=== PATIENT | male | born 1980 | race Caucasian/White ===

== ENCOUNTER 2024-02-10 00:42 | Inpatient (IN) | payer OTHER ==
[~2024-02-10] VITALS: Ht 170.2 cm; Wt 113.4 kg
[2024-02-10 03:16] LABS: BASOPHILS % 0.3 % (0.0-2.0); EOSINOPHILS % 0.6 % (0.0-5.0); HEMATOCRIT. 54.8 % (42.0-52.0); HEMOGLOBIN. 17.7 g/dL (14.0-18.0); LYMPHOCYTES % 11.7 % (20.0-50.0); MEAN CORPUSCULAR HEMOGLOBIN 29.7 pg (28.0-32.0); MEAN CORPUSCULAR HGB CONC 32.3 g/dL (31.0-37.0); MEAN CORPUSCULAR VOLUME 91.8 fL (80.0-94.0); MONOCYTES % 8.9 % (2.0-8.0); NEUTROPHILS % 78.5 % (40.0-76.0); RED BLOOD CELL COUNT 5.97 mill/uL (4.7-6.1); RED CELL DISTRIBUTION WIDTH 13.3 % (11.6-14.6); WHITE BLOOD COUNT 17.1 x1000/uL (4.5-11.0)
[2024-02-10 03:21] LABS: DIFFERENTIAL COMMENT 1
[2024-02-10 03:39] LABS: CHLORIDE 102 mEq/L (98-107); POTASSIUM 3.2 mEq/L (3.5-5.1); SODIUM 138 mEq/L (136-145)
[2024-02-10 03:40] LABS: CALCIUM 9.6 mg/dL (8.7-10.4); CARBON DIOXIDE 27 mEq/L (21-32)
[2024-02-10 03:45] LABS: GLUCOSE 151 mg/dL (70-105); UREA NITROGEN BLOOD 8 mg/dL (9-23)
[2024-02-10] MEDS ORDERED: LACTATED RINGERS IV ONE (03:45)
[2024-02-10 04:16] LABS: CLARITY URINE CLEAR (CLEAR); COLOR URINE DARK YELLOW (YELLOW); GLUCOSE URINE NEGATIVE (NEGATIVE); KETONES URINE 2+ (NEGATIVE); LEUKOCYTE ESTERASE URINE NEGATIVE (NEGATIVE); NITRITE URINE NEGATIVE (NEGATIVE); OCCULT BLOOD URINE NEGATIVE (NEGATIVE); PH URINE 5.5 (4.5-8.0); PROTEIN URINE 1+ (NEGATIVE); SPECIFIC GRAVITY URINE 1.032 (1.005-1.030)
[2024-02-10 04:30] LABS: LACTATE DEHYDROGENASE 144 IU/L (120-246)
[2024-02-10] MEDS: SODIUM CHLORIDE 0.9% (SEPSIS BOLUS) IV ONE (04:34)
[2024-02-10] MEDS: AMPICILLIN SOD/SULBACTAM NA 3 G in SODIUM CHLORIDE 0.9% 100 ML IV SCH ×2 (04:34→16:00)
[2024-02-10 06:25] LABS: PLATELET 230 x1000/uL (130-400)
[2024-02-10] MEDS ORDERED: IOHEXOL-300 100 ML BOTTLE ONE (07:12)
[2024-02-10 07:35] LABS: MUCUS URINE 3+ /lpf (NONE/TRACE); SQUAMOUS EPITHELIAL CELL URINE RARE /lpf (RARE/1+)
[2024-02-10 07:36] LABS: RBC URINE 0-2 /hpf (0-2); WBC URINE 0-2 /hpf (0-2)
[2024-02-10 07:38] LABS: BACTERIA URINE NONE SEEN
[2024-02-10] MEDS: HYDRALAZINE 20MG/ML VIAL IV NR (07:55)
[2024-02-10] MEDS ORDERED: ONDANSETRON HCL 4MG/2ML INJ IV PRN (08:45)
[2024-02-10] MEDS ORDERED: ACETAMINOPHEN 325MG TABLET PO PRN (08:45)
[2024-02-10] MEDS ORDERED: KETOROLAC 30MG/ML VIAL IV PRN (08:45)
[2024-02-10] MEDS: POTASSIUM CHLORIDE 20MEQ TABLET SR PO NR (11:07)
[2024-02-10 12:00] VITALS: BP 141/74; PULSE 87; RESP 18; TEMP 36.61404; O2SAT 97
[2024-02-10] MEDS: AMLODIPINE 10MG TABLET PO SCH (15:59)
[2024-02-10 16:00] VITALS: BP 141/74; PULSE 87; RESP 18; TEMP 36.61404; O2SAT 97
[2024-02-10 16:29] VITALS: BP 162/88; PULSE 99; RESP 18; TEMP 37.9748
[2024-02-10 20:00] VITALS: BP 162/88; PULSE 99; RESP 18; TEMP 37.2252; O2SAT 95
[2024-02-11] VITALS: BP 108/60; PULSE 74; RESP 18; TEMP 36.78072; O2SAT 95
[2024-02-11 08:00] VITALS: BP 136/82; PULSE 72; RESP 19; TEMP 36.16956; O2SAT 100
[2024-02-11 08:35] LABS: BASOPHILS % 0.5 % (0.0-2.0); EOSINOPHILS % 2.2 % (0.0-5.0); HEMATOCRIT. 47.8 % (42.0-52.0); HEMOGLOBIN. 15.9 g/dL (14.0-18.0); LYMPHOCYTES % 21.1 % (20.0-50.0); MEAN CORPUSCULAR HEMOGLOBIN 30.5 pg (28.0-32.0); MEAN CORPUSCULAR HGB CONC 33.3 g/dL (31.0-37.0); MEAN CORPUSCULAR VOLUME 91.7 fL (80.0-94.0); MEAN PLATELET VOLUME 9.2 fl (7.4-10.4); MONOCYTES % 11.6 % (2.0-8.0); NEUTROPHILS % 64.6 % (40.0-76.0); PLATELET 198 x1000/uL (130-400); RED BLOOD CELL COUNT 5.21 mill/uL (4.7-6.1); RED CELL DISTRIBUTION WIDTH 13.1 % (11.6-14.6); WHITE BLOOD COUNT 8.3 x1000/uL (4.5-11.0)
[2024-02-11 12:09] VITALS: BP 127/72; PULSE 79; RESP 20; TEMP 36.22512; O2SAT 100
[2024-02-11 16:00] VITALS: BP 131/74; PULSE 78; RESP 20; TEMP 36.3918; O2SAT 100
[2024-02-11 20:00] VITALS: BP 147/98; PULSE 82; RESP 20; TEMP 36.72516; O2SAT 98
[2024-02-12] VITALS: BP 118/66; PULSE 69; RESP 20; TEMP 36.61404; O2SAT 100
[2024-02-12 04:00] VITALS: BP 127/96; PULSE 78; RESP 20; TEMP 36.50292; O2SAT 96
[2024-02-12] MEDS ORDERED: AMOX1TAB16 MT (09:45)
[2024-02-12] MEDS ORDERED: AMLO5TAB88 MT (09:45)
[2024-02-12 09:52] VITALS: BP 135/70; PULSE 84; TEMP 98.1; O2SAT 96
== END 2024-02-12 10:45 | disposition home or self-care (01) | DRG 872 ==
LOC: ER 00:42 → 6EST 04:24 → EDBEDREQTM 04:38 → EDBEDREQ 04:38
PROVIDERS: ADMIT Internal Medicine; ATTEND Internal Medicine
DX: A41.9 Sepsis, unspecified organism (principal); L03.314 Cellulitis of groin; E66.01 Morbid (severe) obesity due to excess calories; E87.6 Hypokalemia; I10 Essential (primary) hypertension; Z68.39 Body mass index [BMI] 39.0-39.9, adult
CPT/HCPCS: 36415; 74177; 76857; 80048; 81003; 83605; 83615; 85025; 99285; J0295; J0360; J7030; J7050; J7120; Q9967

== ENCOUNTER 2024-11-05 00:42 | Emergency (ER) | payer OTHER ==
[~2024-11-05] VITALS: Ht 170.2 cm; Wt 111.0 kg
[~2024-11-05 00:42] MED LIST: AMLO5TAB88 MT; AMOX1TAB16 MT
[2024-11-05 01:00] VITALS: O2SAT 99
[2024-11-05] MEDS ORDERED: DOXY-461 MT (02:58)
[2024-11-05] MEDS: CEFTRIAXONE SODIUM 500MG VIAL IM ONE (03:05)
[2024-11-05 03:24] VITALS: BP 154/107; PULSE 107; RESP 16; TEMP 36.7; O2SAT 100
== END 2024-11-05 03:28 | disposition home or self-care (01) ==
LOC: ER 00:42
DX: N48.89 Other specified disorders of penis (principal)
CPT/HCPCS: 96372; 99283; J0696; Z7610 ×2